=== PATIENT | female | born 1995 | race African-American/Black ===

== ENCOUNTER 2018-02-16 17:06 | Emergency (ER) | payer OTHER ==
[2018-02-16 17:32] VITALS: BP 108/54; PULSE 78; TEMP 98.8; BMI 24.0
--- NOTE | 2018-02-16 17:35 | PDOC ---
Rapid Medical Evaluation Time Seen by Provider: 02/16/18 17:25 Medical Evaluation: Allergies Allergy/AdvReac Type Severity Reaction Status Date / Time No Known Allergies Allergy Verified 02/16/18 17:29 02/16/18 17:32 Pt c/o: bump inside opening of vagina. no discharge, pain with urination and wiping Pt on brief exam: pelvic exam deferred, Pt ordered for: ua, upreg, ucx Pt to proceed to the ED Discharge Disposition - Diagnosis Labial swelling - Referrals - Patient Instructions - Post Discharge Activity
--- NOTE | 2018-02-16 18:12 | PDOC ---
History of Present Illness - General Chief Complaint: Vaginal Sxs Stated Complaint: CYST Time Seen by Provider: 02/16/18 17:25 - History of Present Illness Initial Comments: 02/16/18 18:13 CHIEF COMPLAINT: vaginal discomfort HISTORY OF PRESENT ILLNESS: 22 yo F with no significant PMH presents to fast track with discomfort to vagina, worse with urination. Patient reports "I felt like here was something swollen or something when I wiped. It also starks when I pee." She reports having a negative ct/gc test last week. She reports increased discharge but "it's like normal colored, not green or yellow." She denies itching or foul odor. She reports that she does shave her genitals No recent travel or sick contacts. PAST MEDICAL HISTORY: Denies past medical history FAMILY HISTORY: Denies SOCIAL HISTORY: Denies tobacco, alcohol, illicit drug use. SURGICAL HISTORY: Denies ALLERGIES: No known drug allergies REVIEW OF SYSTEMS General/Constitutional: Denies fever or chills. Denies weakness, weight change. HEENT: Denies change in vision. Denies ear pain or discharge. Denies sore throat. Cardiovascular: Denies chest pain or shortness of breath. Respiratory: Denies cough, wheezing, or hemoptysis. Gastrointestinal: Denies nausea, vomiting, diarrhea or constipation. Denies rectal bleeding. Genitourinary: Burning with urination, "it feels like swelling down there." Musculoskeletal: Denies joint or muscle swelling or pain. Denies neck or back pain. Skin and breasts: Denies rash or easy bruising. Neurologic: Denies headache, vertigo, loss of consciousness, or loss of sensation. PHYSICAL EXAM General Appearance: Well-appearing, appropriately dressed. No apparent distress , no intoxication. HEENT: EOMI, PERRLA, normal ENT inspection, normal voice, TMs normal, pharynx normal. No conjunctival pallor. No photophobia, scleral icterus. Neck: Supple. Trachea midline. No tenderness, rigidity, carotid bruit, stridor , lymphadenopathy, or thyromegaly. Respiratory/Chest: Lungs CTAB. No shortness of breath, chest tenderness, respiratory distress, accessory muscle use. No crackles, rales, rhonchi, stridor , wheezing, dullness Cardiovascular: RRR. S1, S2. No JVD, murmur, bradycardia, tachycardia. Vascular Pulses: Dorsalis-Pedis (R): 2+, Dorsalis-Pedis (L): 2+ Gastrointestinal/Abdominal: Normal bowel sounds. Abdomen soft, non-distended. No tenderness or rebound tenderness. No organomegaly, pulsatile mass, guarding , hernia, hepatomegaly, splenomegaly. Pelvic: External genitalia normal without lesions. Vaginal vault is clear without blood or discharge. Cervix is long and closed. No cervical motion tenderness. Uterus is nontender and normal in size. Adnexa are nontender and without masses. Lymphatic: No adenopathy, tenderness. Musculoskeletal/Extremities: Normal inspection. FROM of all extremities, normal capillary refill. Pelvis Stable. No CVA tenderness. No tenderness to extremities, pedal edema, swelling, erythema or deformity. Integumentary: Appropriate color, dry, warm. No cyanosis, erythema, jaundice or rash Neurologic: spray mixer II-XII intact. Fully oriented, alert. Appropriate mood/affect. Motor strength 5/5. No appreciable EOM palsy, facial droop or sensory deficit. Past History - Past Medical History Allergies/Adverse Reactions: Allergies Allergy/AdvReac Type Severity Reaction Status Date / Time No Known Allergies Allergy Verified 02/16/18 17:29 Home Medications: Ambulatory Orders Sulfamethoxazole/Trimethoprim [Bactrim Ds -] 1 tab PO BID #14 tablet 02/16/18 COPD: No Other medical history: denies. - Suicide/Smoking/Psychosocial Hx Smoking History: Never smoked *Physical Exam - Vital Signs Last Vital Signs Temp Pulse Resp BP Pulse Ox 98.8 F 78 15 108/54 100 02/16/18 17:29 02/16/18 17:29 02/16/18 17:29 02/16/18 17:29 02/16/18 17:29 Medical Decision Making - Medical Decision Making 02/16/18 18:15 22 yo F with no significant PMH presents to fast track with discomfort to vagina , worse with urination. Pelvic exam unremarkable, no discharge or vaginal bleeding. -UA, Ucx, upreg sent in triage. Advised patient to use warm soaks 4x daily and of signs and symptoms for return to ER. Patient verbalized understanding and agrees to plan. *DC/Admit/Observation/Transfer Diagnosis at time of Disposition: Urinary tract infection - Discharge Dispostion Disposition: HOME Condition at time of disposition: Stable Admit: No - Prescriptions Prescriptions: Sulfamethoxazole/Trimethoprim [Bactrim Ds -] 1 tab PO BID #14 tablet - Referrals - Patient Instructions Printed Discharge Instructions: DI for Urinary Tract Infection (UTI) Additional Instructions: As discussed, please use warm soaks 10-15 minutes, 4 times daily for the next 5- 7 days to help draw out any infectious process. Please take medications as prescribed. Follow up with OBGYN if symptoms persist past 1 week. - Post Discharge Activity
[2018-02-16 18:26] LABS: HCG,QUALITATIVE URINE NEGATIVE; URINE APPEARANCE SLCLOUDY; URINE BILIRUBIN NEGATIVE (<2.0 mg/dL); URINE BLOOD NEGATIVE (NEGATIVE); URINE COLOR LTYELLOW; URINE GLUCOSE (UA) NEGATIVE (NEGATIVE); URINE KETONE NEGATIVE (NEGATIVE); URINE NITRITE NEGATIVE (NEGATIVE); URINE PROTEIN NEGATIVE (NEGATIVE); URINE UROBILINOGEN NEGATIVE mg/dL (0.2-1.0)
[2018-02-16 18:29] LABS: URINE LEUK ESTERASE 1+ (NEGATIVE)
[2018-02-16 18:31] LABS: EPI CELLS FEW /HPF (FEW); URINE MUCUS RARE
== END 2018-02-16 19:04 | disposition home or self-care (01) ==
LOC: JERFT 17:06
DX: N39.0 Urinary tract infection, site not specified (principal)
CPT/HCPCS: 81003; 81015; 84703; 87086; 99281-25